=== PATIENT | female | born 1950 | race Caucasian/White ===

== ENCOUNTER → 2016-10-28 | Outpatient (CLI) | payer MEDICARE, OTHER ==
[~2016-10-28] MED LIST: ALDACTONE25 MG PO; CALCIUM 500 +1 EAC3 PO; CRESTOR10 MG PO; ELIQUIS5 MG PO; FISH OIL 1,0001 EACH PO; LASIX20 MG PO; NORCO 5-325 MG1 TAB PO; OXYGEN M-15 INH; TOPROL XL25 MG PO; TYLENOL EXTRA500 MG PO; ZESTRIL2.5 MG PO
[2016-10-28 17:22] LABS: BASOPHIL % 0.3 %; EOSINOPHIL % 0.5 %; HEMATOCRIT 37.8 % (33.0-46.0); HEMOGLOBIN 12.2 g/dL (10.0-15.0); IMMATURE GRANULOCYTE % 0.3 %; LYMPHOCYTE # 1.5 K/uL (0.8-4.0); LYMPHOCYTE % 23.2 %; MCH 29.5 pg (27.0-34.0); MCHC 32.3 gm/dL (32.0-36.5); MCV 91.3 fl (83.0-98.0); MONOCYTE # 0.6 K/uL (0.0-1.0); MONOCYTE % 9.4 %; MPV 9.5 fl (9.4-12.4); NEUTROPHIL # (ANC) 4.2 K/uL (1.8-7.8); NEUTROPHIL % 66.3 %; NRBC % 0 /100WBC (0-0.00); PLATELET COUNT 360 K/uL (150-450); RBC 4.14 M/uL (3.50-5.50); RDW-CV 12.8 % (11.9-14.6); WBC 6.3 K/uL (4.0-11.0)
[2016-10-28 17:23] LABS: ALBUMIN 3.9 gm/dL (3.5-5.0); ALK PHOS 82 IU/L (33-138); ALT 19 IU/L (12-78); ANION GAP 12.4 (10.0-19.0); AST 16 IU/L (10-40); BLOOD UREA NITROGEN 16 mg/dL (6-24); CALCIUM 8.7 mg/dL (8.5-10.5); CHLORIDE 104 mMol/L (96-110); CO2 27 mMol/L (22-32); CREATININE 0.7 mg/dL (0.5-1.1); ESTIMATED GFR (MDRD EQUATION) > 60; POTASSIUM 3.4 mMol/L (3.7-5.1); SODIUM 140 mMol/L (135-145); TOTAL BILIRUBIN 0.7 mg/dL (0.0-1.5); TOTAL PROTEIN 7.4 g/dL (6.0-8.4)
== END ==
LOC: LNHI 17:13
PROVIDERS: Internal Medicine Cardiovascular Disease
DX: I48.0 Paroxysmal atrial fibrillation (principal); I50.32 Chronic diastolic (congestive) heart failure; E78.2 Mixed hyperlipidemia; G47.34 Idiopathic sleep related nonobstructive alveolar hypoventilation

== ENCOUNTER → 2017-01-06 | Outpatient (CLI) | payer MEDICARE, OTHER ==
--- NOTE | ~2017-01-06 | ECHO ---
Transthoracic Echocardiography Report (TTE) Demographics Patient Name KERI ASCENCIO I Date of Study 01/06/2017 Patient Number [id number] Visit Number [id number] Date of 1950 Room Number Gender Female Number Age 66 year(s) Referring Branden Carrasco DO [employer] Aaliyah Yang RVT Physician Gina Wilson MD Physician Interpreting Efstraulises Test Rider Physician Leonora Wilson MD Supervising Ordering Gina DIAZ/MLP Physician Leonora Wilson MD Nurse Stress Telephone Clerk Telegraph Office Conclusions Contractility Score Summary Normal Left Ventricular contractility was noted. Summary The estimated left ventricular ejection fraction is 65-70%. Mild to moderate concentric left ventricular hypertrophy. Diastolic assessment reveals Grade I diastolic dysfunction. Mildly dilated right ventricle. Normal right ventricular systolic performance. The right atrium is mildly to moderately dilated. Moderate-severe tricuspid regurgitation by color Doppler. There is moderate pulmonary hypertension. The pulmonary pressure (RVSP) is 49 mmHg. Procedure Type of Study TTE procedure:2D Echocardiogram. Procedure Date Date: 01/06/2017 Start: 04:17 PM Study Location: Echo Lab Technical Quality: Adequate visualization Indications:CHF. Appropriate Use Criteria: 9 Patient Status: Routine HR: 66 bpm BP: 112/53 mmHg Allergies - No known allergies. M-Mode/2D Measurements LV Diastolic Dimension: 3.68 cm LV Systolic Dimension: 2.31 cm LV Septum Diastolic: 1.67 cm LV PW Diastolic: 1.51 cm AO Root Dimension: 2.6 cm Cardiac Output: 4.73 l/min AV Cusp Separation: 1.9 cm RV Diastolic Dimension: 3.29 cm LVOT: 2 cm LVOT VTI: 22.8 cm RV Base: 3.67 cm LV Stroke volume: 71.59 ml RV Length: 5.12 cm TAPSE: 2.42 cm TDI-S': 20.5 cm/s Doppler Measurements AV Peak Velocity: 1.69 m/s MV Peak E-Wave: 0.7 m/s AV Peak Gradient: 11.42 mmHg MV Peak A-Wave: 0.92 m/s AV Mean Gradient: 6 mmHg MV E/A Ratio: 0.76 LVOT Peak Velocity: 0.98 m/s MV P1/2t: 86 msec TR Gradient:39.44 mmHg PV Peak Velocity: 0.83 m/s Estimated RAP:10 mmHg PV Peak Gradient: 2.74 mmHg Estimated RVSP: 49 mmHg Estimated PASP: 49.44 mmHg E' Septal Velocity: 0.09 m/s A' Septal Velocity: 0.12 m/s E' Lateral Velocity: 0.07 m/s A' Lateral Velocity: 0.1 m/s Findings Left Ventricle Mild to moderate concentric left ventricular hypertrophy. Diastolic assessment reveals Grade I diastolic dysfunction. Right Ventricle Mildly dilated right ventricle. Normal right ventricular systolic performance. Left Atrium Normal left atrial size. Right Atrium The right atrium is mildly to moderately dilated. Mitral Valve Mild mitral annular calcification. Trivial mitral regurgitation by color Doppler. Aortic Valve Normal aortic valve structure and function. Tricuspid Valve Moderate-severe tricuspid regurgitation by color Doppler. There is moderate pulmonary hypertension. The pulmonary pressure (RVSP) is 49 mmHg. Pulmonic Valve Normal pulmonic valve structure and function. Pericardial Effusion No evidence of pericardial effusion. Epicardial fat pad noted. Miscellaneous Visualized portions of the aortic root and ascending aorta appear normal in size. Pleural Effusion No evidence of pleural effusion. Contractility Score LV regional wall motion:(0-Non visualized 1-Normal 2-Hypokinesis 3-Akinesis 4-Dyskinesis 5-Aneurysm) Signature dtt: Alirio Fuentes dtd: 01/06/17 [id number] Physician Self Edit
== END | disposition disaster alternative care site (69) ==
LOC: GCAR 16:00
DX: I50.32 Chronic diastolic (congestive) heart failure (principal); I51.7 Cardiomegaly; I25.3 Aneurysm of heart; I27.2 Other secondary pulmonary hypertension

== ENCOUNTER → 2017-01-06 | Outpatient (CLI) | payer MEDICARE, OTHER ==
[2017-01-06 16:15] LABS: ANION GAP 11.4 (10.0-19.0); CALCIUM 8.9 mg/dL (8.5-10.5); CREATININE 1.1 mg/dL (0.5-1.1); POTASSIUM 3.4 mMol/L (3.7-5.1)
== END | disposition disaster alternative care site (69) ==
LOC: LNHI 15:58
PROVIDERS: Internal Medicine Cardiovascular Disease
DX: I48.0 Paroxysmal atrial fibrillation (principal); I50.32 Chronic diastolic (congestive) heart failure

== ENCOUNTER → 2017-02-08 | Outpatient (CLI) | payer MEDICARE, OTHER ==
--- NOTE | ~2017-02-08 | NDGEN ---
PATIENT'S NAME: KERI ASCENCIO I [facility] AGE: 66 Y [address] ROOM: [place] [address] LOCATION: [facility] ADMIT DATE: 02/08/2017 Neurodiagnostics DISCHARGE DATE: FAMILY PHYSICIAN: Carrillo Otero DO ATTENDING PHYSICIAN: AVERY ARBOLEDA DATE OF PROCEDURE: 02/08/2017 PROCEDURE PERFORMED: A nerve conduction study with an EMG of bilateral lower extremities. INDICATIONS: This is a 66-year-old female patient who developed mostly weakness in her leg muscles associated with probable proximal weakness in getting up from a chair and increased fatigability of her muscles. 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 She has been off the medications for many months, but she still reports being weak in her legs. She denies weakness in her arms. Nerve conduction studies were performed of the bilateral upper and lower extremities to rule out any possibility of a systemic neuropathy. Furthermore needle EMG was performed to look for any evidence of an inflammatory myositis or something consistent with polymyositis or any type of muscle pathology when examining motor unit action potentials. The results of the motor nerve conduction studies were all normal with normal motor onset latencies, amplitudes, and nerve conduction velocities. In the lower extremity peroneal and tibial motor studies, all showed normal motor onset latencies, amplitudes, and nerve conduction velocities. Next, the sensory nerve conduction studies were performed in the bilateral median, ulnar, and sural nerves. The amplitudes were all within normal limits with peak onset latencies normal. Conduction velocities were all within the range of 45-52 m/second. Next, a needle was placed into the lower extremities including the bilateral quadriceps muscles, tibialis anterior, and gastrocnemius muscles. With the muscles at rest, there was prominent evidence of spontaneous motor unit action potentials seen with the muscles at rest. This is consistent with spasms only, somewhat of a benign finding; however, there was no evidence of any spontaneous electrical activity such as fibrillation potentials and positive sharp waves, or insertional activity that would be suspicious for an inflammatory myositis or a neuropathy seen in motor neuron disease. Full PATIENT'S NAME: KERI ASCENCIO I [facility] AGE: 66 Y [address] ROOM: [place] [address] LOCATION: [facility] ADMIT DATE: 02/08/2017 Neurodiagnostics DISCHARGE DATE: FAMILY PHYSICIAN: Carrillo Otero DO ATTENDING PHYSICIAN: AVERY ARBOLEDA recruitment of motor unit action potentials seen in the bilateral lower extremities including the quadriceps gastrocnemius muscles and tibialis anterior muscles. Next, the tests for myasthenia gravis were performed involving repetitive nerve stimulation. The accessory nerve was isolated on the right neck and stimulated and recorded at the trapezius crest on the right. There were normal compound motor action potentials with the patient initially without any exercise. This compound motor action potential showed normal amplitudes with an increasing response per stimulation. Next, the patient was exercised and fatigued with a shoulder shrug exercise for nearly 2 minutes. After this fatiguing exercise, the compound motor action potentials were neck stimulated on that accessory nerve. There was initial drop in the compound motor action potential amplitudes but a normal response with an increase in compound motor action potential amplitudes thereafter. This was a completely normal study and would likely rule out the possibility of myasthenia gravis as an etiology here. IMPRESSION: The nerve conduction studies of the bilateral upper and lower extremities were all normal. Needle EMG of the lower extremities were normal. These findings did not reveal any suspicion for a neuropathy, myopathy, or myositis of the upper or lower extremities. Differential may include polymyalgia rheumatica which is purely more of a fatigability and myalgic pain to the to the legs, but this does not seem to be the major characteristic here. The patient actually had full power on testing of her upper and lower extremities. 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 Finally, the patient will come back to our office in approximately 6 weeks for re- evaluation at that time. MD AIDAN CROOK/saul /[id number] dtt: 02/28/17 1612 MIGUEL JASON R. dtd: 02/08/17 1913
== END | disposition disaster alternative care site (69) ==
LOC: GNEU 16:17
DX: R29.898 Other symptoms and signs involving the musculoskeletal system (principal)